=== PATIENT | male | born 1955 | race Caucasian/White ===

== ENCOUNTER → 2016-11-16 | Outpatient (CLI) | payer BC ==
[~2016-11-16] MED LIST: ASPI1CPM PO; ATRV10T PO; ENAL20TA PO; ENLP5T PO; HCT25T PO; INSU100I23 SQ; LEVE1U SQ
--- NOTE | 2016-11-18 20:33 | ECHOCARDIOGRAPHY REPORT ---
DATE OF SERVICE: 11/16/2016 MEASUREMENT: LVID end diastolic 3.8, IVS thickness 0.9, LVPW thickness 0.9, left atrial diameter 3.4, ejection fraction 60%. FINDINGS: 1. Technical quality is good. 2. The left ventricle is normal in size with normal contractility. Systolic function appeared to be normal. Estimated ejection fraction 60%. 3. The left atrium is normal in size. No clots or thrombus were seen within the left atrium. 4. The right atrium and right ventricle are normal in size. No clots or thrombus were seen within the right side. 5. Mitral valve is normal in morphology with mild mitral regurgitation noted by color Doppler flow. No mitral valve prolapse. No mitral valve stenosis. 6. Aortic valve is trileaflet with normal opening and closing pattern. No significant stenosis or regurgitation was seen. 7. Tricuspid valve is normal in morphology with mild tricuspid regurgitation noted by color Doppler flow. Doppler across the tricuspid valve estimated pulmonary artery pressure of 12+ right atrial pressure. 8. Pulmonic valve is functioning normally. 9. No pericardial effusion. IN CONCLUSION: 1. Normal left ventricular size and systolic function. Estimated ejection fraction 60%. 2. Mild mitral and tricuspid regurgitation. 3. Estimated pulmonary artery pressure of 20 mmHg. Job ID: [id number] DocumentID: [id number] Dictated Date: 11/17/2016 08:13:35 Wind Power Project Manager Date: 11/17/2016 13:05:27 Dictated By: DIPESH DEL VALLE MD
== END ==
LOC: CARD 13:34
PROVIDERS: ATTEND Internal Medicine Cardiovascular Disease
DX: I10 Essential (primary) hypertension (principal); E78.2 Mixed hyperlipidemia; E66.8 Other obesity; G45.8 Other transient cerebral ischemic attacks and related syndromes
CPT/HCPCS: 93306

== ENCOUNTER → 2020-02-09 | Outpatient (CLI) | payer MEDICARE, OTHER | LOC: CARD 08:41 | PROVIDERS: ATTEND Physician Assistant | DX: I10 Essential (primary) hypertension (principal); E78.2 Mixed hyperlipidemia; G45.9 Transient cerebral ischemic attack, unspecified | CPT/HCPCS: 93306 ==

== ENCOUNTER → 2020-02-17 | Outpatient (CLI) | payer MEDICARE, OTHER ==
[~2020-02-17] MED LIST changes: +CATHETER FLUSH 10 ML SYR IV PRN
[2020-02-17 09:42] VITALS: BP 138/80
--- NOTE | 2020-02-17 14:00 | Cardiology Stress Test Report ---
Stress Test Report Date of Procedure/Referring: Date of Procedure: Feb 17, 2020 PCP Lilia Saldivar Admitting Physician Asher Kumar MD Indications: hypertension Baseline Blood Pressure: Blood Pressure Systolic: 138 Blood Pressure Diastolic: 80 Vital Signs Date Time Temp Pulse Resp B/P (MAP) Pulse Ox O2 Delivery O2 Flow Rate FiO2 02/17/20 09:42 79 138/80 (99) 98 Baseline Vital Signs Vital Signs Date Time Temp Pulse Resp B/P (MAP) Pulse Ox O2 Delivery O2 Flow Rate FiO2 02/17/20 09:42 79 138/80 (99) 98 Baseline EKG: Baseline EKG: Normal sinus rhythm Summary: After explaining the procedure and details to the patient, he signed the consent and was brought to the stress nuclear laboratory. Patient exercised on standard Augustus protocol, EKG, heart rate and blood pressure were monitored continuously, resting and stress doses of radio tracer were injected, imaging was acquired and reviewed in the short axis, horizontal long axis and vertical long axis views Patient was able to exercise for a total of [ 5:30] minutes on Augustus protocol, METs 7.1 Maximum heart rate 145 Maximum blood pressure 198/88 Stress EKG, Minimal nondiagnostic changes, occasional PVCs Recovery EKG, Return to baseline TID: 1.06 SSS: 3 SDS: 3 EF: 60 Conclusion: 1. Fair exercise tolerance for a total of 5 minutes 30 seconds on Augustus protocol achieving 93 percent of maximum expected heart rate, total of 7.1 METs 2. Minimal nondiagnostic EKG changes, occasional PVCs and ventricular bigeminy noted during exercise returned to baseline during recovery 3. Hypertensive response to exercise with peak blood pressure 198/88 returned to baseline during recovery 4. No significant ischemia or infarction on SPECT images 5. Normal left ventricular size and systolic function EF 60 percent DIPESH DEL VALLE MD Feb 17, 2020 14:00
== END ==
LOC: CARD 07:59
PROVIDERS: ATTEND Physician Assistant
DX: I10 Essential (primary) hypertension (principal); E78.5 Hyperlipidemia, unspecified; G45.8 Other transient cerebral ischemic attacks and related syndromes
CPT/HCPCS: 78452; 93017; A9502

== ENCOUNTER 2021-03-20 21:14 | Emergency (ER) | payer MEDICARE, OTHER ==
[~2021-03-20 21:14] MED LIST changes: -CATHETER FLUSH 10 ML SYR IV PRN
--- NOTE | 2021-03-20 21:29 | ED Integumentary General ---
General Stated Complaint: RASH Source: patient Exam Limitations: no limitations History of Present Illness Date Seen by Provider: Mar 20, 2021 Time Seen by Provider: 21:25 Initial Comments This is a well-appearing 66-year-old male presented to the ER with complaints of rash on his back chest and upper extremities that started this morning. States that he has been camping for the past couple days however he did not have any new exposures to lotions, soap, insect sprays, weeds. No new medications or foods. He took 2 Benadryl earlier today and states this helped with the itching however his symptoms have progressed throughout the day he took another 2 Benadryl tablets approximately hour prior to arrival. Denies any swelling of his tongue or throat, no shortness of breath, no diarrhea or abdominal pain. Allergies and Home Medications Allergies Coded Allergies: No Known Drug Allergies (Unverified , 04/17/13) Patient Home Medication List Home Medication List Reviewed: Yes Aspirin/Dipyridamole (Aggrenox 25 Mg-200 Mg Capsule) 1 Each Cpmp.12hr, 1 EACH PO BID, (Reported) Entered as Reported by: NOAH JONES on 04/22/13 0851 Atorvastatin Calcium (Lipitor 10 Mg) 10 Mg Tablet, 1 EACH PO HS, (Reported) Entered as Reported by: NOAH JONES on 04/22/13 0851 Enalapril Maleate (Vasotec Tablet) 5 Mg Tab, 5 MG PO BID, (Reported) Entered as Reported by: NOAH JONES on 04/22/13 0851 Famotidine (Pepcid) 20 Mg Tablet, 20 MG PO BID Prescribed by: ELEONORA DELANEY on 03/20/212149 Insulin Determir (Levemir Pen) 100 U/Ml Insuln.pen, 22 UNIT SQ HS, (Reported) Entered as Reported by: NOAH JONES on 04/22/13 0828 Insulin Human Lispro (Humalog Pen) 300 U/3 Ml Insuln.pen, 10 UNITS SQ TIDAC, (Reported) Entered as Reported by: NOAH JONES on 04/22/13 08 Methylprednisolone (Methylprednisolone Dose Pack) 4 Mg Tab.ds.pk, 4 MG PO UD Prescribed by: ELEONORA DELANEY on 03/20/212203 Review of Systems Review of Systems Constitutional: no symptoms reported EENTM: no symptoms reported Respiratory: no symptoms reported Cardiovascular: no symptoms reported Gastrointestinal: no symptoms reported Musculoskeletal: no symptoms reported Skin: see HPI Past Ztlncit-Hezvoi-Lnrcbw Hx Past Medical History Reproductive Disorders: No Sexually Transmitted Disease: No HIV/AIDS: No Physical Exam Vital Signs Vital Signs - First Documented 03/20/21 21:24 Temp 37.0 Pulse 106 Resp 16 B/P (MAP) 126/79 (95) Pulse Ox 97 O2 Delivery Room Air Capillary Refill : General Appearance: WD/WN, no apparent distress HEENT: PERRL/EOMI, normal ENT inspection, pharynx normal; No pharyngeal erythema Neck: full range of motion, supple, normal inspection Cardiovascular: regular rate, rhythm, no murmur Respiratory: lungs clear, normal breath sounds, no respiratory distress Gastrointestinal: normal bowel sounds, non tender, soft Extremities: normal range of motion, non-tender, normal inspection Neurologic/Psychiatric: no motor/sensory deficits, alert, normal mood/affect, oriented x 3 Skin: normal color, warm/dry Skin Problem Location: generalized Skin Problem Character: urticarial Progress/Results/Core Measures Results/Orders Lab Results Laboratory Tests Test 03/20/21 21:38 Range/Units Glucometer 190 H 70-110 MG/DL My Orders Orders - ELEONORA DELANEY APRN Famotidine Tablet (Pepcid Tablet) (03/20/21 22:00) Medications Given in ED Vital Signs/I&O 03/20/21 03/20/21 21:24 22:00 Temp 37.0 37.0 Pulse 106 106 Resp 16 16 B/P (MAP) 126/79 (95) 126/79 Pulse Ox 97 97 O2 Delivery Room Air Room Air Departure Impression Primary Impression: Urticaria Disposition: 01 HOME, SELF-CARE Condition: Stable Departure-Patient Inst. Decision time for Depature: 21:48 Referrals: NELIA HOUSER MD (PCP/Family) Primary Care Physician Patient Instructions: Hives Add. Discharge Instructions: Plan: 1. Take Zyrtec or Claritin daily for 1 week. 2. Take Pepcid by mouth twice a day for the next week. 3. Take Benadryl 25my by mouth every 4-6 hours for itching/hives. 4. Use Medrol dose pack as last resort. Take with food if you decide to have filled. Make sure to check you blood sugar every morning before eating if you take steroids. 5. Return to ER if you develop any new, concerning, or worsening symptoms. Scripts Methylprednisolone (Methylprednisolone Dose Pack) 4 Mg Tab.ds.pk 4 MG PO UD for 6 Days, #21 PKG 0 Refills PER DOSE PACK INSTRUCTIONS Prov: ELEONORA DELANEY [employer] MAT ASSEMBLER 03/20/21 Famotidine (Pepcid) 20 Mg Tablet 20 MG PO BID for 7 Days, #14 TAB 0 Refills Prov: ELEONORA DELANEY [employer] ASSEMBLER 03/20/21 ELEONORA DELANEY APRN Mar 20, 2021 21:29
[2021-03-20] MEDS ORDERED: FAMO-119 PO (21:50)
[2021-03-20 22:00] VITALS: BP 126/79
[2021-03-20] MEDS ORDERED: FAMOTIDINE 20 MG (PEPCID) TABLET PO ONE (22:00)
[2021-03-20] MEDS ORDERED: METH4TAB10 PO (22:04)
== END 2021-03-20 22:00 | disposition home or self-care (01) ==
LOC: EDUNIT# 21:14 → ER 21:16
DX: L50.9 Urticaria, unspecified (principal); Z79.82 Long term (current) use of aspirin
CPT/HCPCS: 82947

== ENCOUNTER → 2021-10-12 | Outpatient (CLI) | payer MEDICARE, OTHER ==
[~2021-10-12] MED LIST changes: +FAMO-119 PO; +METH4TAB10 PO
--- NOTE | 2021-10-12 15:54 | Diagnostic Imaging Report ---
INDICATION: Left foot pain. COMPARISON: None available. TECHNIQUE: Three radiographs of the left foot dated 10/12/2021. FINDINGS: No acute fracture or dislocation. No destructive osseous process. Mild scattered degenerative changes are present, including mild joint space narrowing involving the first MTP joint. The Lisfranc joint is well aligned. No evidence of tarsal coalition. Advanced background vascular calcifications are identified. IMPRESSION: No acute osseous abnormality with mild scattered degenerative changes and advanced background vascular calcifications present. Dictated by: Dictated on workstation # [id number]
== END ==
LOC: RAD 14:17
PROVIDERS: ATTEND Nurse Practitioner Family
DX: M19.072 Primary osteoarthritis, left ankle and foot (principal)
CPT/HCPCS: 73630

== ENCOUNTER 2022-02-07 08:39 | Outpatient (RCR) | payer MEDICARE, OTHER | END 2022-02-11 | disposition home or self-care (01) | LOC: ONC 08:39 | PROVIDERS: ATTEND Radiology Radiation Oncology | DX: C61 Malignant neoplasm of prostate (principal); E78.00 Pure hypercholesterolemia, unspecified; I10 Essential (primary) hypertension; Z86.73 Personal history of transient ischemic attack (TIA), and cerebral infarction without residual deficits | CPT/HCPCS: 76873; G0463; 99204 ==

== ENCOUNTER 2022-04-18 05:28 | Outpatient (CLI) | payer MEDICARE, OTHER ==
[~2022-04-18] VITALS: Ht 175.3 cm; Wt 95.0 kg
[2022-04-19] MEDS ORDERED: ACET-2055 PO (13:42)
[2022-04-19] MEDS ORDERED: METF-399 PO (13:42)
== END 2022-04-19 13:59 | disposition home or self-care (01) ==
LOC: PREOP 05:28
PROVIDERS: ATTEND Radiology Radiation Oncology
DX: Z01.818 Encounter for other preprocedural examination (principal)

== ENCOUNTER 2022-04-25 08:56 | Day surgery (SDC) | payer MEDICARE, OTHER ==
[2022-04-25] VITALS (9 sets, daily range): BP systolic 123–168; BP diastolic 80–99
[~2022-04-25] VITALS: Ht 175 cm; Wt 95.0 kg
[~2022-04-25 08:56] MED LIST changes: +ACET-2055 PO; +METF-399 PO
[2022-04-25] MEDS ORDERED: LACTATED RINGERS 1,000 ML IV PRN (09:00)
--- NOTE | 2022-04-25 10:22 | Progress Note-Pre Operative ---
Pre-Operative Progress Note Date of Available H&P: Apr 17, 2022 Date H&P Reviewed: Apr 25, 2022 Time H&P Reviewed: 10:21 History & Physical: H&P Reviewed, Patient Examed, No changes noted Pre-Operative Diagnosis: Prostate cancer cT1c, PSA 5.12, [place]idge 7(4+3) ROBERTO RAMIREZ MD Apr 25, 2022 10:22
[2022-04-25] MEDS ORDERED: CIPR250S2 PO (10:25)
[2022-04-25] MEDS ORDERED: ACET-11 PO (10:25)
--- NOTE | 2022-04-25 10:27 | Discharge Inst-Simple/Standard ---
Discharge Inst-Standard Reconcile Patient Problems Problems Reviewed?: Yes Discharge Medications New, Converted or Re-Newed RX: RX Given to Pt/Family Patient Instructions/Follow Up Plan of Care/Instructions/FU: 1)one month post implant at [facility] 05/23/22 at 10:00 a.m. 2)one month follow up with Dr. Lynch 05/28/22 at 3:30 p.m. Activity as Tolerated: Yes Discharge Diet: No Restrictions Other Inst to Patient Please instruct patient on troncoso catheter care and self removal on Saturday04/30/22 in the morning. ROBERTO RAMIREZ MD Apr 25, 2022 10:27
[2022-04-25] MEDS ORDERED: BACITRACIN OINTMENT 28 GM TUBE ONE (10:31)
[2022-04-25] MEDS ORDERED: SEVOFLURANE (ULTANE) 15 ML INHAL SOLN ONE ×2 (10:40→12:05)
[2022-04-25] MEDS ORDERED: MIDAZOLAM 2 MG/2 ML (VERSED) VIAL ONE (10:40)
[2022-04-25] MEDS ORDERED: proPOfol 200 MG/20 ML (DIPRIVAN) VIAL IV ONE (10:40)
[2022-04-25] MEDS ORDERED: ONDANSETRON 4 MG/2 ML (SDV) Z0FRAN ONE (10:40)
[2022-04-25] MEDS ORDERED: fentaNYL INJ 100 MCG/2 ML AMP ONE (10:40)
[2022-04-25] MEDS ORDERED: LIDOCAINE PF 2% 5 ML (XYLOCAINE) VIAL ONE (10:40)
[2022-04-25] MEDS ORDERED: BACITRACIN OINTMENT 28 GM TUBE TOP SCH (12:00)
[2022-04-25] MEDS ORDERED: IOHEXOL 300 MG/ML 30 ML (OMNIPAQUE 300) VIAL INJ ONE (12:00)
[2022-04-25] MEDS ORDERED: BACITRACIN OINTMENT 28 GM TUBE TOP NR (12:00)
[2022-04-25] MEDS ORDERED: morphine INJ 10 MG/ML 1ML (SYR OR VIAL) IVP ONE (12:30)
[2022-04-25] MEDS ORDERED: ONDANSETRON 4 MG/2 ML (SDV) Z0FRAN IVP PRN (12:30)
--- NOTE | 2022-04-25 12:38 | Progress Note-Post Operative ---
Post-Operative Progess Note Surgeon (s)/International Trade Teacher (s) Surgeon ROBERTO RAMIREZ MD International Trade Teacher: Yolis ROACH MD Pre-Operative Diagnosis Prostate cancer cT1c, PSA 5.12, [place] 7(4+3) Post-Operative Diagnosis Same as pre-op Procedure & Operative Findings Date of Procedure 04/25/22 Procedure Performed/Findings (1) 67% Cesium 131 permanent prostate seed implant (2) Injection of biodegradable hydrogel prostate-rectal spacer utilizing the ScalITe system (3) Cystogram Prostate volume 25.15 cc Anesthesia Type General Estimated Blood Loss Estimated blood loss (mL): Minimal Specimens/Packing Specimens Removed None Packing: None ROBERTO RAMIREZ MD Apr 25, 2022 12:38
--- NOTE | 2022-04-25 13:54 | Anesthesia-General Post-Op ---
General Patient Condition Mental Status/LOC: Same as Preop Cardiovascular: Satisfactory Nausea/Vomiting: Absent Respiratory: Satisfactory Pain: Controlled Complications: Absent Post Op Complications Complications None Follow Up Care/Instructions Patient Instructions None needed. Anesthesia/Patient Condition Patient Condition Patient is doing well, no complaints, stable vital signs, no apparent adverse anesthesia problems. No complications reported per nursing. SIMA ALEXANDER DO Apr 25, 2022 13:54
--- NOTE | 2022-04-25 17:19 | Diagnostic Imaging Report ---
INDICATION: Prostate cancer IMPRESSION: 18 seconds of fluoroscopy and 2 digital images were acquired in surgery showing brachytherapy implants in the prostate. Dictated by: Dictated on workstation # [id number]
== END 2022-04-25 14:05 | disposition home or self-care (01) ==
LOC: SDC 08:56
PROVIDERS: ATTEND Radiology Radiation Oncology
DX: C61 Malignant neoplasm of prostate (principal); Z86.73 Personal history of transient ischemic attack (TIA), and cerebral infarction without residual deficits; E66.9 Obesity, unspecified; Z68.31 Body mass index [BMI] 31.0-31.9, adult; E11.9 Type 2 diabetes mellitus without complications
CPT/HCPCS: 55874; 76000; 76965; 77290; 77318; 77470; 77778; 82947; 87081; C1715 ×2; C1889; C2643

== ENCOUNTER → 2022-06-13 | Outpatient (RCR) | payer MEDICARE, OTHER ==
[~2022-06-13] MED LIST changes: +ACET-11 PO; +CIPR250S2 PO
== END | disposition home or self-care (01) ==
LOC: ONC 05-23 08:44
PROVIDERS: ATTEND Radiology Radiation Oncology
DX: C61 Malignant neoplasm of prostate (principal); I10 Essential (primary) hypertension; E78.2 Mixed hyperlipidemia; Z86.73 Personal history of transient ischemic attack (TIA), and cerebral infarction without residual deficits
CPT/HCPCS: 77290; 77295; 77334

== ENCOUNTER 2022-07-06 09:13 | Outpatient (RCR) | payer MEDICARE, OTHER | END 2022-07-14 | disposition home or self-care (01) | LOC: ONC 09:13 | PROVIDERS: ATTEND Radiology Radiation Oncology | DX: Z51.0 Encounter for antineoplastic radiation therapy (principal); C61 Malignant neoplasm of prostate; I10 Essential (primary) hypertension; I65.23 Occlusion and stenosis of bilateral carotid arteries; E78.2 Mixed hyperlipidemia; E66.9 Obesity, unspecified; Z68.32 Body mass index [BMI] 32.0-32.9, adult | CPT/HCPCS: 77300; 77301; 77336; 77338; 77385; 77470 ==

== ENCOUNTER 2022-09-05 05:57 | Outpatient (CLI) | payer MEDICARE, OTHER ==
[~2022-09-05] VITALS: Ht 175.3 cm; Wt 99.1 kg
[2022-09-05] MEDS ORDERED: ATOR10TA66 PO (10:04)
[2022-09-05] MEDS ORDERED: ASPI-808 PO (10:04)
[2022-09-05] MEDS ORDERED: ENAL10TA16 PO (10:04)
[2022-09-05] MEDS ORDERED: AMLO-251 PO (10:04)
== END 2022-09-05 10:07 | disposition home or self-care (01) ==
LOC: PREOP 05:57
PROVIDERS: ATTEND Internal Medicine
DX: Z01.818 Encounter for other preprocedural examination (principal)

== ENCOUNTER 2022-09-06 09:43 | Outpatient (RCR) | payer MEDICARE, OTHER ==
[~2022-09-06 09:43] MED LIST changes: +AMLO-251 PO; +ASPI-808 PO; +ATOR10TA66 PO; +ENAL10TA16 PO
== END 2022-09-11 | disposition home or self-care (01) ==
LOC: ONC 09:43
PROVIDERS: ATTEND Radiology Radiation Oncology
DX: C61 Malignant neoplasm of prostate (principal); I10 Essential (primary) hypertension; I65.23 Occlusion and stenosis of bilateral carotid arteries; E78.2 Mixed hyperlipidemia; E66.9 Obesity, unspecified; Z68.32 Body mass index [BMI] 32.0-32.9, adult
CPT/HCPCS: G0103; G0463; 36415; 84153; 99213

== ENCOUNTER 2022-09-14 10:29 | Day surgery (SDC) | payer MEDICARE, OTHER ==
--- NOTE | 2022-09-05 15:46 | HISTORY AND PHYSICAL ---
DATE OF SERVICE: 09/14/2022 COLONOSCOPY HISTORY AND PHYSICAL DATE OF ADMISSION: 09/14/2022 HISTORY OF PRESENT ILLNESS: The patient is a 67-year-old white male, referred by MRAGE Singh for diagnostic colonoscopy due to a positive Cologuard. He denies bright red blood per rectum, melena, change in bowel habit or change in weight. He is not aware of any family history for colon cancer. He reports that he has been feeling well and voiced no complaints. PAST MEDICAL HISTORY: Significant for hyperlipidemia and essential hypertension as well as type 2 diabetes with no known history of vascular disease. He is recently diagnosed with prostate cancer, apparently confined to the gland as he underwent seed and external beam therapy, for which he just finished roughly 3 weeks ago. He had no problems with therapy. Denies diarrhea. MEDICATIONS: On admission, include metformin 1000 mg b.i.d., enalapril 10 mg daily, amlodipine 10 mg daily, atorvastatin 10 mg daily and aspirin 325 mg twice daily. SOCIAL HISTORY: He is , retired from work at the local [employer]. He reports no past significant alcohol intake and no past smoking history. FAMILY HISTORY: His brother has a history of hypertension with no vascular disease. His mother of complications of an acute leukemia and his father of complications of Alzheimer's dementia. REVIEW OF SYSTEMS: CONSTITUTIONAL: Denies night sweats, chills, fever, change in weight. GASTROINTESTINAL: As noted in the HPI. CARDIOVASCULAR: Denies chest discomfort, dyspnea on exertion, orthopnea or PND. PULMONARY: Denies cough, wheezing or shortness of breath. PHYSICAL EXAMINATION: GENERAL: Reveals a pleasant, overweight white male, in no acute distress. VITAL SIGNS: Weight 218 pounds, blood pressure 120/74. HEENT: Unremarkable. Sclerae nonicteric. CHEST: Clear to auscultation. CARDIOVASCULAR: Reveals regular rate and rhythm without murmur, S3 or S4. ABDOMEN: Soft, supple without mass, organomegaly or tenderness. He does have significant diastasis recti. Bowel sounds positive. EXTREMITIES: Reveal no cyanosis, clubbing or edema. ASSESSMENT: The patient is being set up for diagnostic colonoscopy due to positive Cologuard. His electronic medical record was reviewed. We did discuss the various findings and percentages from normal exam to colon cancer based on Cologuard positive statistics. Prep instructions were given and questions were answered. I thank you for the referral of this pleasant gentleman. Job ID: [id number] DocumentID: [id number] Dictated Date: 09/03/2022 14:04:17 Flat Knitter Date: 09/03/2022 14:33:00 Dictated By: ROSEMARY SINGH MD MTDD
[~2022-09-14] VITALS: Ht 175 cm; Wt 99.1 kg
[2022-09-14] MEDS ORDERED: LACTATED RINGERS 1,000 ML IV STA (10:30)
[2022-09-14 10:55] VITALS: BP 164/91
--- NOTE | 2022-09-14 11:45 | Pre-Op Note & Conscious Sedat ---
Pre-Operative Progress Note Date H&P Reviewed: Sep 14, 2022 Time H&P Reviewed: 11:35 History & Physical: H&P Reviewed, Patient Examed, No changes noted Pre-Op Diagnosis: positive cologuard Conscious Sedation Pre-Proced ASA Score 3 For ASA 3 and 4: Consider anesthesia and medical clearance. Also, for patients with a history of failed moderate sedation consider anesthesia. Airway Lungs Heart ASA score ASA 1: a normal healthy patient ASA 2: a patient with a mild systemic disease (mid diabetes, controlled hypertension, obesity ASA 3: a patient with a severe systemic disease that limits activity (angina, COPD, prior Myocardial infarction) ASA 4: a patient with an incapacitating disease that is a constant threat to life (CHF, renal failure) ASA 5: a moribund patient not expected to survive 24 hrs. (ruptured aneurysm) ASA 6: a declared brain- patient whose organs are being harvested. For emergent operations, add the letter E after the classification Mallampati Classification Grade 2 Sedation Plan Analgesia, Amnesia, Plan communicated to team members, Discussed options with patient/fam, Discussed risks with patient/fam The patient is an appropriate candidate to undergo the planned procedure, sedation, and anesthesia. The patient immediately re-assessed prior to indication. ROSEMARY SINGH MD Sep 14, 2022 11:44
[2022-09-14] MEDS ORDERED: PROPOFOL INJECTION 50 ML IV ONE (11:46)
[2022-09-14 12:18] VITALS: BP 138/69
[2022-09-14 12:23] VITALS: BP 119/65
--- NOTE | 2022-09-14 12:24 | Progress Note-Post Operative ---
Post-Procedure Note Physician (s)/Occ Ther (s) Physician ROSEMARY SINGH MD Pre-Procedure Diagnosis Pre-Procedure Diagnosis: positive cologuard Post-Procedure Diagnosis Post-operative diagnosis: Prior to undergoing colonoscopy digital rectal evaluation was performed. Prostate is enlarged and a little boggy to palpation no hard nodules were appreciated with the patient known to have recently undergone as I recall seed implantation for prostate cancer. No other abnormalities noted on digital inspection anal canal or distal rectal vault. Anal sphincter tone was normal and the perianal reflexes intact. The colonoscope was then inserted into the rectum and under direct visualization advanced to the cecum. The cecum was done 5 identification of the ileocecal valve and the cecal strap. Photographic documentation was obtained. Careful inspection was made as the colonoscope was withdrawn. Quality the prep was good. Findings: There is a bit of erythema and swelling anterior rectum over the prostate with no evidence for ulceration and no evidence for polyps. The rectum was otherwise unremarkable with no evidence for internal or external hemorrhoids. Moderate to severe diverticular disease was noted predominantly sigmoid colon to a lesser extent the descending colon without evidence for diverticulitis no other abnormalities noted in these locations. The splenic flexure and proximal mid and distal transverse colon were unremarkable. Sessile adenomatous appearing polyps approximately 1 cm in size were noted in the mid transverse colon as well as proximal transverse colon both were biopsied and ablated with no subsequent blood loss. The hepatic flexure ascending colon and cecum were unremarkable. Assessment: 2 sessile approximate 1 cm polyps were noted in the mid and proximal transverse colon. Both were ablated and submitted for histopathology. As long as there is no evidence for dysplasia we will advocate repeat surveillance colonoscopy in 1 year considering this and positive Cologuard. Moderate to severe diverticular disease noted in the sigmoid and descending colon was present without evidence for diverticulitis. I thank you for the furl this pleasant gentleman sincerely, Rosemary Singh MD. CC: Dr. Nestor Kumar MD. ROSEMARY SINGH MD Sep 14, 2022 12:24
[2022-09-14 12:30] VITALS: BP 126/64
--- NOTE | 2022-09-14 12:42 | Anesthesia-General Post-Op ---
MAC Patient Condition Mental Status/LOC: Same as Preop Cardiovascular: Satisfactory Nausea/Vomiting: Absent Respiratory: Satisfactory Pain: Controlled Complications: Absent Post Op Complications Complications None Follow Up Care/Instructions Patient Instructions None needed. Anesthesiology Discharge Order Discharge Order Patient is doing well, no complaints, stable vital signs, no apparent adverse anesthesia problems. No complications reported per nursing. SIMA ALEXANDER DO Sep 14, 2022 12:42
[2022-09-14 12:55] VITALS: BP 126/64
== END 2022-09-14 12:59 | disposition home or self-care (01) ==
LOC: ENDO 10:29
PROVIDERS: ATTEND Internal Medicine
DX: Z12.11 Encounter for screening for malignant neoplasm of colon (principal); D12.3 Benign neoplasm of transverse colon; K57.30 Diverticulosis of large intestine without perforation or abscess without bleeding; C61 Malignant neoplasm of prostate; E11.9 Type 2 diabetes mellitus without complications; Z79.84 Long term (current) use of oral hypoglycemic drugs; E66.9 Obesity, unspecified; Z68.32 Body mass index [BMI] 32.0-32.9, adult
CPT/HCPCS: 82947

== ENCOUNTER → 2023-03-14 | Outpatient (RCR) | payer MEDICARE, OTHER ==
[~2023-03-14] MED LIST changes: -ENAL10TA16 PO; +ENLP10T PO
== END | disposition home or self-care (01) ==
LOC: ONC 11:03
PROVIDERS: ATTEND Radiology Radiation Oncology
DX: C61 Malignant neoplasm of prostate (principal); I10 Essential (primary) hypertension; I65.23 Occlusion and stenosis of bilateral carotid arteries; E78.2 Mixed hyperlipidemia; E66.9 Obesity, unspecified; Z68.32 Body mass index [BMI] 32.0-32.9, adult
CPT/HCPCS: 84153; G0463; 36415; 99213